=== PATIENT | female | born 1955 | race Caucasian/White ===

== ENCOUNTER 2021-03-21 19:06 | Emergency (ER) | payer BC ==
[2021-03-21 19:20] VITALS: BMI 35.6
[2021-03-21] MEDS ORDERED: ACETAMINOPHEN 325 MG TABLET (FP) PO ONE (20:32)
[2021-03-21] MEDS ORDERED: NEBIVOLOL 10 MG TABLET (FP) PO ONE (20:32)
[2021-03-21] MEDS ORDERED: ACETAMINOPHEN 325 MG TABLET (FP) ONE (20:39)
[2021-03-21 20:41] LABS: BASO % 0.4 % (0-2.0); HEMATOCRIT 43.6 % (32.4-45.2); LYMPH % 14.5 % (8-40); MCH 35.5 pg (25.7-33.7); MCHC 34.5 g/dl (32.0-36.0); MEAN CELL VOLUME 103.1 fl (80-96); MONO % 8.1 % (3.8-10.2); PLATELET COUNT 201 10^3/uL (134-434); RBC 4.23 M/mm3 (3.60-5.2); WHITE BLOOD COUNT 6.4 K/mm3 (4.0-10.0)
[2021-03-21 20:53] LABS: CHLORIDE 97 mmol/L (98-107); SODIUM 134 mmol/L (136-145)
[2021-03-21 20:55] LABS: CALCIUM 9.2 mg/dL (8.5-10.1)
[2021-03-21 20:56] LABS: ALBUMIN 4.2 g/dl (3.4-5.0); ANION GAP 13 MMOL/L (8-16); BLOOD UREA NITROGEN 9.2 mg/dL (7-18); CO2 24 mmol/L (21-32); GLUCOSE,RANDOM 119 mg/dL (74-106)
[2021-03-21 20:59] LABS: CREATININE 0.8 mg/dL (0.55-1.3); SGOT/AST 189 U/L (15-37); SGPT/ALT 132 U/L (13-61)
[2021-03-21 21:01] LABS: BILIRUBIN,TOTAL 1.4 mg/dL (0.2-1)
[2021-03-21 21:02] LABS: ALK PHOS 126 U/L (45-117)
[2021-03-21 21:04] LABS: N-TERMINAL BNP 96.2 pg/ml (5-125)
[2021-03-21 21:49] LABS: LIPASE 370 U/L (73-393)
[2021-03-21 23:25] LABS: LDH 285 U/L (84-246)
[2021-03-21] MEDS ORDERED: SODIUM CHLORIDE 0.9% 500 ML INFUS.BAG IV ONE (23:35)
[2021-03-22 00:32] LABS: URINE APPEARANCE Error; URINE BILIRUBIN NEGATIVE (NEGATIVE); URINE COLOR YELLOW; URINE GLUCOSE (UA) NEGATIVE (NEGATIVE); URINE KETONE 1+ (NEGATIVE); URINE LEUK ESTERASE NEGATIVE (NEGATIVE); URINE NITRITE NEGATIVE (NEGATIVE); URINE PROTEIN NEGATIVE (NEGATIVE)
[2021-03-22 08:40] VITALS: BP 139/96; PULSE 86; TEMP 98.6
== END 2021-03-22 08:42 | disposition home or self-care (01) ==
LOC: JER 19:06 → UNDOADMOB 03-22 01:30 → JERBED 03-22 01:30 → JER 03-22 08:42
DX: R53.1 Weakness (principal); K80.80 Other cholelithiasis without obstruction; R74.01 Elevation of levels of liver transaminase levels
CPT/HCPCS: 36415; 71045-TC-FY; 71275-TC; 76705-TC; 80053; 81003; 82550; 82728; 82962; 83615; 83690; 83880; 84484; 85025; 85379; 86140; 87086; 93005; 93010; 99285-25; C9803; Q9967; U0003; U0005